=== PATIENT | female | born 1935 | race Caucasian/White ===

== ENCOUNTER 2019-12-15 17:21 | Inpatient (IN) | payer MEDICARE, OTHER ==
[2019-12-15 18:04] LABS: Hemoglobin 12.7 g/dL (12.0-16.0); Mean Corpuscular HGB CONC 34.7 g/dL (32.0-36.0); Mean Corpuscular Hemoglobin 30.8 pg (27.0-31.0); Mean Corpuscular Volume 88.9 fL (78.0-98.0); Mean Platelet Volume 9.5 fL (7.4-10.4); Platelet Count 212 thou/uL (130-400); RBC Distribution Width 11.7 % (11.5-14.5); Red Blood Cell (RBC) Count 4.11 mill/uL (4.20-5.40); White Blood Cell (WBC) Count 10.7 thou/uL (4.8-10.8)
[2019-12-15 18:17] LABS: Band 2 % (5-11); Lymphocytes 7 % (21-51); MDiff Complete? YES; Monocytes 3 % (0-10); Neutrophil 87 % (42-75); Platelet Morphology Comment Appears Adequate; RBC Morphology Normal; Reactive Lymphocytes 1 % (0-10)
[2019-12-15 18:25] LABS: ALT (SGPT) 43 U/L (8-55); AST (SGOT) 32 U/L (5-34); Albumin 3.1 g/dL (3.4-4.8); Alkaline Phosphatase 62 U/L (40-110); Anion Gap 14 mmol/L (10-20); BUN (Urea Nitrogen) 24 mg/dL (9.8-20.1); Bilirubin, Total 0.7 mg/dL (0.2-1.2); Calc. Creatinine Clearance 0 mL/min (70-130); Calcium 8.4 mg/dL (7.8-10.44); Carbon Dioxide 20 mmol/L (23-31); Chloride 107 mmol/L (98-107); Estimated GFR-MDRD 67; Globulin 2.9 g/dL (2.4-3.5); Glucose 98 mg/dL (83-110); Potassium 3.8 mmol/L (3.5-5.1); Sodium 137 mmol/L (136-145)
[2019-12-15 18:48] LABS: CKMB 0.4 ng/mL (0-6.6)
--- NOTE | 2019-12-15 18:56 | RAD ---
Chest AP view INDICATION: Dizziness, weakness and fever COMPARISON: None FINDINGS: Lungs: There is bilateral peripheral airspace disease suspicious for bilateral pneumonia. Cardiac silhouette: The cardiomediastinal silhouette appears within normal limits. Pulmonary vasculature: Normal Pleural spaces: No pleural effusion or pneumothorax is demonstrated. Upper abdomen: No abnormality seen. Osseous structures: No acute osseous abnormality. Additional findings: None. IMPRESSION: Bilateral peripheral interstitial and airspace opacities suspicious for an atypical infectious proces s. Recommend correlation with Covid testing.
[2019-12-15] MEDS ORDERED: cefTRIAXone\\ROCEPHIN 1 GM VIAL ONE (19:07)
[2019-12-15] MEDS ORDERED: Azithromycin 500 MG VIAL ONE (19:07)
[2019-12-15] MEDS ORDERED: Guaifenesin DM 100-10/5 ML UDCUP PO PRN (20:30)
[2019-12-15] MEDS ORDERED: Acetaminophen 325 MG TAB PO PRN (20:30)
[2019-12-15 20:32] LABS: SARS-CoV-2 NAA Rapid Test DETECTED (NotDetected)
--- NOTE | 2019-12-15 20:35 | PDOC.HHP ---
Hospitalist HPI - History of Present Illness Cough and shortness of breath History of Present Illness: 84-year-old man with a past medical history of hypercholesterolemia and hypothyroidism presented to the emergency department with a complaint of cough, shortness of breath and fever. Patient report cough nasal congestion and shortness of breath which have been present for about 1 and half weeks. Her PCP prescribed her steroids and antibiotics with no response. Patient report developing fever today with temperature up to 101.3. She also reports nonproductive cough. Denied any chest pain. She was complaining of dizziness and weakness. Chest x-ray in the ED demonstrated bilateral interstitial and airspace opacities consistent with atypical pneumonia suspicious for Covid. Patient has no leukocytosis, not tachycardic and does not meet criteria for sepsis. She was also saturating well on room and was not requiring oxygen. Rapid COVID-19 test is pending. Hospitalist service is called hospitalized the patient for further management. Hospitalist ROS - Review of Systems Other: Patient denied any abdominal pain or diarrhea or nausea or vomiting. She denied any dysuria or increased urinary frequency. Except as documented, all other systems reviewed and negative. - Medication Medications: Current Medications Acetaminophen (Acetaminophen 325 Mg Tab) 650 mg PO Q4H PRN PRN Reason: Headache/Fever/Mild Pain (1-3) Ascorbic Acid (Ascorbic Acid 500 Mg Chewable Tablet) 1,000 mg PO DAILY [facility] Azithromycin (Azithromycin 250 Mg Tab) 500 mg PO DAILY [facility] Stop: 12/19/19 09:01 Cholecalciferol (Cholecalciferol 1,000 Units (25 Mcg) Tab) 1,000 units PO DAILY [facility] Dexamethasone (Dexamethasone 4 Mg Tab) 6 mg PO QA-[facility] Enoxaparin Sodium (Enoxaparin Sodium 40 Mg/0.4 Ml Syringe) 40 mg SC 0900 [facility] Guaifenesin/Dextromethorphan (Guaifenesin Dm 100-10/5 Ml Udcup) 15 ml PO Q4H PRN PRN Reason: Cough Sodium Chloride (Flush - Normal Saline 10 Ml Syringe) 10 ml IVF Q12HR PRN PRN Reason: Saline Flush Zinc Sulfate (Zinc Sulfate 220 Mg Cap) 220 mg PO DAILY [facility] Hospitalist History - Past Medical History Cardiac: reports: Other (Hypercholesterolemia) Endocrine: reports: Hypothyroidism - Past Surgical History Other Surgical History: Tonsillectomy, kidney stone removal, back growth removal. - Family History Other Family History: Patient states no known medical problems in her family. Mother at the age of 94, father at a similar age. - Social History Smoking Status: Former smoker Alcohol: reports: None Drugs: reports: none - Exam General Appearance: NAD, awake alert Eye: PERRL, anicteric sclera ENT: normocephalic atraumatic, no oropharyngeal lesions, moist mucosa Neck: supple, symmetric, no JVD Heart: RRR, no murmur, no gallops, no rubs Respiratory: no wheezes, no ronchi Respiratory - other findings: Mild bibasilar Rales. Gastrointestinal: soft, non-tender, non-distended, normal bowel sounds Extremities: no cyanosis, no edema Skin: normal turgor, no rashes Neurological: cranial nerve grossly intact, no weakness, no focal deficits Musculoskeletal: normal tone, normal strength Psychiatric: normal affect, normal behavior, A&O x 3 Hospitalist Results - Labs Result Diagrams: 12/15/19 17:50 12/15/19 17:50 Lab results: WBC 10.7 thou/uL (4.8-10.8) 12/15/19 17:50 Hgb 12.7 g/dL (12.0-16.0) 12/15/19 17:50 Hct 36.5 % (36.0-47.0) 12/15/19 17:50 MCV 88.9 fL (78.0-98.0) 12/15/19 17:50 Plt Count 212 thou/uL (130-400) 12/15/19 17:50 Band Neuts % (Manual) 2 % (5-11) L 12/15/19 17:50 Sodium 137 mmol/L (136-145) 12/15/19 17:50 Potassium 3.8 mmol/L (3.5-5.1) 12/15/19 17:50 Chloride 107 mmol/L (98-107) 12/15/19 17:50 Carbon Dioxide 20 mmol/L (23-31) L 12/15/19 17:50 BUN 24 mg/dL (9.8-20.1) H 12/15/19 17:50 Creatinine 0.82 mg/dL (0.6-1.1) 12/15/19 17:50 Glucose 98 mg/dL (83-110) 12/15/19 17:50 Lactic Acid 0.8 mmol/L (0.5-2.2) 12/15/19 18:25 Calcium 8.4 mg/dL (7.8-10.44) 12/15/19 17:50 Total Bilirubin 0.7 mg/dL (0.2-1.2) 12/15/19 17:50 AST 32 U/L (5-34) 12/15/19 17:50 ALT 43 U/L (8-55) 12/15/19 17:50 Alkaline Phosphatase 62 U/L (40-110) 12/15/19 17:50 CK-MB (CK-2) 0.4 ng/mL (0-6.6) 12/15/19 17:50 Troponin I 0.078 ng/mL (< 0.028) H 12/15/19 17:50 Serum Total Protein 6.0 g/dL (6.0-8.3) 12/15/19 17:50 Albumin 3.1 g/dL (3.4-4.8) L 12/15/19 17:50 - Radiology Interpretation Chest x-ray Status: report reviewed by me (Bilateral lower lobe infiltrates.) Hospitalist H&P A/P - Problem (1) Pneumonia due to COVID-19 virus Code(s): U07.1 - COVID-19; J12.89 - OTHER VIRAL PNEUMONIA Status: Acute (2) Hypothyroidism Code(s): E03.9 - HYPOTHYROIDISM, UNSPECIFIED Status: Acute (3) Hypercholesterolemia Code(s): E78.00 - PURE HYPERCHOLESTEROLEMIA, UNSPECIFIED Status: Acute (4) Elevated troponin Code(s): R77.8 - OTHER SPECIFIED ABNORMALITIES OF PLASMA PROTEINS Status: Acute Assessment and Plan: Etiology of elevated troponin is unclear. Patient denies any chest pain. She has no history of coronary artery disease. - Plan Plan: Place patient under observation. Start Zithromax. Start oral dexamethasone for Covid pneumonia. Vitamin supplementation. Supplemental oxygen as needed. Obtain an echocardiogram given elevated troponin. Check ferritin, procalcitonin d-dimer and CRP.
[2019-12-15 20:58] LABS: Bilirubin Negative (Negative); Blood, Urine Negative (Negative); Clarity Clear (Clear); Glucose, Urine (Dipstick) Normal (Negative); Ketone, Urine Negative (Negative); Leukocyte Negative Leu/uL (Negative); Nitrite Negative (Negative); Protein, Urine (Dipstick) Negative (Neg-Trace); Urobilinogen Normal mg/dL (Less than 2); pH, Urine 6.5 (5.0-9.0)
[2019-12-15 21:42] LABS: Troponin I 0.099 ng/mL (< 0.028)
--- NOTE | 2019-12-15 21:47 | PDOC.FMACP ---
Advance Care Planning - Problem (1) Pneumonia Status: Acute Code(s): J18.9 - PNEUMONIA, UNSPECIFIED ORGANISM (2) Hypothyroidism Status: Acute Code(s): E03.9 - HYPOTHYROIDISM, UNSPECIFIED (3) Hypercholesterolemia Status: Acute Code(s): E78.00 - PURE HYPERCHOLESTEROLEMIA, UNSPECIFIED (4) Elevated troponin Status: Acute Code(s): R77.8 - OTHER SPECIFIED ABNORMALITIES OF PLASMA PROTEINS - Note Summary: Advanced Care Planning was discussed. The diagnosis, prognosis and goals of care were discussed. Appropriate forms and documentation to accomplish the goals of care were discussed. All questions were answered. Patient wishes to be full code. She has no living well. Her daughter Isabell is her medical decision maker. I discussed the need to document advance directive and MPOA. Time Spent (mins): 18
[2019-12-16 00:23] LABS: Troponin I 0.095 ng/mL (< 0.028)
[2019-12-16 01:34] VITALS: BMI 24.6
[2019-12-16 05:32] LABS: Anion Gap 14 mmol/L (10-20); BUN (Urea Nitrogen) 21 mg/dL (9.8-20.1); Calc. Creatinine Clearance 63 mL/min (70-130); Carbon Dioxide 19 mmol/L (23-31); Chloride 110 mmol/L (98-107); Estimated GFR-MDRD 77; Glucose 80 mg/dL (83-110); Potassium 3.7 mmol/L (3.5-5.1); Sodium 139 mmol/L (136-145)
[2019-12-16 05:45] LABS: Band 8 % (5-11); Hemoglobin 12.3 g/dL (12.0-16.0); Lymphocytes 7 % (21-51); MDiff Complete? YES; Mean Corpuscular HGB CONC 33.1 g/dL (32.0-36.0); Mean Corpuscular Hemoglobin 29.8 pg (27.0-31.0); Mean Corpuscular Volume 90.2 fL (78.0-98.0); Mean Platelet Volume 9.5 fL (7.4-10.4); Monocytes 3 % (0-10); Neutrophil 82 % (42-75); Platelet Count 220 thou/uL (130-400); Platelet Morphology Comment Appears Adequate; Red Blood Cell (RBC) Count 4.13 mill/uL (4.20-5.40); White Blood Cell (WBC) Count 10.6 thou/uL (4.8-10.8)
[2019-12-16] MEDS ORDERED: Azithromycin 250 MG TAB PO SCH (09:00)
[2019-12-16] MEDS: Ascorbic Acid 500 mg Chewable Tablet PO SCH (10:03)
[2019-12-16] MEDS: Dexamethasone 4 MG TAB PO SCH (10:04)
[2019-12-16] MEDS: Enoxaparin Sodium 40 MG/0.4 ML SYRINGE SC SCH (10:05)
[2019-12-16] MEDS: Cholecalciferol 1,000 UNITS (25 MCG) TAB PO SCH (10:05)
[2019-12-16] MEDS: Zinc Sulfate 220 MG CAP PO SCH (10:05)
--- NOTE | 2019-12-16 13:03 | PDOC.HOSPP ---
- Subjective Encounter Date: 12/16/19 Encounter Time: 10:15 Subjective: no sob, feels better ambulates by herself - Objective Vital Signs & Weight: Vital Signs (12 hours) Temp Pulse Resp BP Pulse Ox 12/16/19 10:23 98.8 F 91 16 124/75 97 12/16/19 04:00 98.3 F 80 18 131/70 99 Weight Admit Weight 148 lb 3.2 oz Weight 148 lb 3.2 oz I&O: 12/15/19 12/16/19 12/17/19 06:59 06:59 06:59 Intake Total 120 Output Total 180 Balance -60 Result Diagrams: 12/16/19 04:48 12/16/19 04:48 Hospitalist ROS - Medication Medications: Active Medications Generic Name Dose Route Start Last Admin Trade Name Freq PRN Reason Stop Dose Admin Ascorbic Acid 1,000 mg 12/16/19 09:00 12/16/19 10:03 Ascorbic Acid 500 Mg Chewable Tablet PO 1,000 mg DAILY [facility] Administration Azithromycin 500 mg 12/16/19 09:00 12/16/19 10:04 Azithromycin 250 Mg Tab PO 12/19/19 09:01 500 mg DAILY [facility] Administration Cholecalciferol 1,000 units 12/16/19 09:00 12/16/19 10:05 Cholecalciferol 1,000 Units (25 Mcg) Tab PO 1,000 units DAILY [facility] Administration Dexamethasone 6 mg 12/16/19 08:00 12/16/19 10:04 Dexamethasone 4 Mg Tab PO 6 mg QAM-WM [facility] Administration Enoxaparin Sodium 40 mg 12/16/19 09:00 12/16/19 10:05 Enoxaparin Sodium 40 Mg/0.4 Ml Syringe SC 40 mg 0900 [facility] Administration Zinc Sulfate 220 mg 12/16/19 09:00 12/16/19 10:05 Zinc Sulfate 220 Mg Cap PO 220 mg DAILY [facility] Administration - Exam General Appearance: awake alert Eye: PERRL, anicteric sclera ENT: no oropharyngeal lesions, moist mucosa Neck: supple, no JVD Heart: RRR, no murmur Respiratory: no wheezes, no rales Gastrointestinal: soft, non-tender, non-distended, normal bowel sounds Extremities: no cyanosis, no edema Neurological: cranial nerve grossly intact, no focal deficits Hosp A/P (1) Pneumonia due to COVID-19 virus Code(s): U07.1 - COVID-19; J12.89 - OTHER VIRAL PNEUMONIA Status: Acute (2) Hypercholesterolemia Code(s): E78.00 - PURE HYPERCHOLESTEROLEMIA, UNSPECIFIED Status: Chronic (3) Hypothyroidism Code(s): E03.9 - HYPOTHYROIDISM, UNSPECIFIED Status: Chronic Qualifiers: Hypothyroidism type: unspecified Qualified Code(s): E03.9 - Hypothyroidism, unspecified - Plan is on dexamethasone, nebs prn hemostable not on oxygen likely onset is 1 and 1/2 weeks back? may dc home if ok with
[2019-12-16] MEDS ORDERED: FLU VACC QS2020-21(65YR UP)/PF 240 MCG/0.7 ML SYRINGE IM ONE (21:00)
[2019-12-17] MEDS: Enoxaparin Sodium 40 MG/0.4 ML SYRINGE SC SCH (08:53)
[2019-12-17] MEDS: Ascorbic Acid 500 mg Chewable Tablet PO SCH (08:54)
[2019-12-17] MEDS: Dexamethasone 4 MG TAB PO SCH (08:54)
[2019-12-17] MEDS: Cholecalciferol 1,000 UNITS (25 MCG) TAB PO SCH (08:54)
[2019-12-17] MEDS: Zinc Sulfate 220 MG CAP PO SCH (08:54)
--- NOTE | 2019-12-17 13:46 | PDOC.HOSPP ---
- Subjective Encounter Date: 12/17/19 Encounter Time: 10:00 Subjective: is sitting in chair, feels better has cough+ - Objective Vital Signs & Weight: Vital Signs (12 hours) Temp Pulse Resp BP Pulse Ox 12/17/19 11:15 97.6 F 76 14 112/56 L 92 L 12/17/19 08:00 99.0 F 59 L 16 129/58 L 92 L 12/17/19 03:15 97.9 F 63 16 109/59 L 97 Weight Admit Weight 148 lb 3.2 oz Weight 148 lb 3.2 oz I&O: 12/16/19 12/17/19 12/18/19 06:59 06:59 06:59 Intake Total 120 1020 Output Total 180 400 Balance -60 620 Result Diagrams: 12/16/19 04:48 12/16/19 04:48 Hospitalist ROS - Medication Medications: Active Medications Generic Name Dose Route Start Last Admin Trade Name Freq PRN Reason Stop Dose Admin Ascorbic Acid 1,000 mg 12/16/19 09:00 12/17/19 08:54 Ascorbic Acid 500 Mg Chewable Tablet PO 1,000 mg DAILY [facility] Administration Cholecalciferol 1,000 units 12/16/19 09:00 12/17/19 08:54 Cholecalciferol 1,000 Units (25 Mcg) Tab PO 1,000 units DAILY [facility] Administration Dexamethasone 6 mg 12/16/19 08:00 12/17/19 08:54 Dexamethasone 4 Mg Tab PO 6 mg QAM-WM [facility] Administration Enoxaparin Sodium 40 mg 12/16/19 09:00 12/17/19 08:53 Enoxaparin Sodium 40 Mg/0.4 Ml Syringe SC 40 mg 0900 [facility] Administration Zinc Sulfate 220 mg 12/16/19 09:00 12/17/19 08:54 Zinc Sulfate 220 Mg Cap PO 220 mg DAILY [facility] Administration - Exam General Appearance: awake alert Eye: PERRL, anicteric sclera ENT: no oropharyngeal lesions, moist mucosa Neck: supple, no JVD Heart: RRR, no murmur Respiratory: no wheezes, no rales, rhonchi Gastrointestinal: soft, non-tender, non-distended, normal bowel sounds Extremities: no cyanosis, no edema Neurological: cranial nerve grossly intact, no focal deficits Psychiatric: normal affect, A&O x 3 Hosp A/P (1) Pneumonia due to COVID-19 virus Code(s): U07.1 - COVID-19; J12.89 - OTHER VIRAL PNEUMONIA Status: Acute (2) Hypercholesterolemia Code(s): E78.00 - PURE HYPERCHOLESTEROLEMIA, UNSPECIFIED Status: Chronic (3) Hypothyroidism Code(s): E03.9 - HYPOTHYROIDISM, UNSPECIFIED Status: Chronic Qualifiers: Hypothyroidism type: unspecified Qualified Code(s): E03.9 - Hypothyroidism, unspecified - Plan is on dexamethasone, nebs prn, remdesivir to start from today, convalescent plasma hemostable not on oxygen likely onset is 1 and 1/2 weeks back? dc plan after 4 doses of remdesivir to ambulate as tolerated in room
--- NOTE | 2019-12-17 14:01 | CON ---
DATE OF CONSULTATION: 12/17/2019 REASON FOR CONSULTATION: COVID infection. HISTORY OF PRESENT ILLNESS: An 84-year-old, history of dyslipidemia with an 8- day history of respiratory infection and fever with a positive COVID test. Had taken corticosteroids and an unknown oral antimicrobial before admission without improvement. On arrival, temperature 101.3, BP 116/60, O2 saturation 98 on room air. Diminished breath sounds at the bases, otherwise exam was not particularly remarkable. White cell count 10.7, hemoglobin 12.7, platelets 212, and 87% neutrophils. Creatinine 0.72. Ferritin 398. CRP 8.23. SARS-CoV was detected. Chest x-ray, bilateral infiltrates noted. Currently, she is starting to desaturate a bit, she started at 99 and is down to 92 to 93 on room air. A little bit tachypneic, she appears otherwise comfortable. She is sitting up, to try to feel more comfortable without oxygen supplementation. MEDICAL HISTORY: Includes dyslipidemia, had some kidney surgery tonsillectomy, hysterectomy. SOCIAL HISTORY: [place]. Former smoker. ALLERGIES: NONE. FAMILY HISTORY: Noncontributory. Not clear who gave her the virus. She does not go around anybody. Likely, she was in touch with her daughter, who is 60 years old and is asymptomatic. PHYSICAL EXAMINATION: VITAL SIGNS: T-max 99, BP 112/56, heart rate 76, respiratory rate 14, O2 saturation 92 to 97. SKIN: With no areas of breakdown. Peripheral IV access. She is urinating in the toilet. HEENT: Ocular movements conjugate. Oral cavity is somewhat dry. NECK: Supple. No jugular venous distention. LUNGS: With scattered inspiratory crackles, right and left hemithorax. HEART: S1 and S2, regular rate without murmurs. No S3 or S4. ABDOMEN: Soft. Not distended or tender. No ascites. No bladder distention. EXTREMITIES: No edema. Pulses 1+ in dorsalis pedis. Plantar responses are flexor. Moves extremities equally. NEUROLOGIC: Cognitive function appears to be intact. LABORATORY DATA: Followup labs are white cell count 10.6 with 82% neutrophils, and lymphocytopenia, about 700 lymphocytes. ASSESSMENT: Dyslipidemia with mod to severe COVID pneumonia, starting to desaturate now and has bilateral infiltrates, so she is at high risk of progression going into her second week, she is at 8 days now. Go ahead and start remdesivir and give her convalescent plasma, even though the efficacy is modest for those two interventions, particularly remdesivir, but still those are the only two things that we have available in our armamentarium. Waiting for the monoclonal antibodies to become available. Continued Decadron and daily inflammatory markers. She probably will need oxygen supplementation to be started and I would advise at least a nasal cannulae O2 at 1 or 2 L. Job ID: [id number] [facility]
[2019-12-17 14:41] LABS: ALT (SGPT) 103 U/L (8-55); AST (SGOT) 105 U/L (5-34); Albumin 3.7 g/dL (3.4-4.8); Alkaline Phosphatase 85 U/L (40-110); Anion Gap 15 mmol/L (10-20); BUN (Urea Nitrogen) 38 mg/dL (9.8-20.1); Bilirubin, Direct 0.2 mg/dL (0.1-0.3); Bilirubin, Total 0.5 mg/dL (0.2-1.2); CRP (Inflammatory) 8.72 mg/dL (= or < 0.5); Calc. Creatinine Clearance 44 mL/min (70-130); Carbon Dioxide 19 mmol/L (23-31); Chloride 108 mmol/L (98-107); Estimated GFR-MDRD 52; Glucose 213 mg/dL (83-110); Potassium 3.6 mmol/L (3.5-5.1); Protein, Total 6.8 g/dL (6.0-8.3); Sodium 138 mmol/L (136-145)
[2019-12-17] MEDS ORDERED: REMDESIVIR (EUA) 200 MG in Sodium Chloride 0.9% 250 ML 210 ML IV SCH (18:00)
[2019-12-18 05:43] LABS: ALT (SGPT) 107 U/L (8-55); AST (SGOT) 95 U/L (5-34); Albumin 3.2 g/dL (3.4-4.8); Alkaline Phosphatase 71 U/L (40-110); Anion Gap 14 mmol/L (10-20); BUN (Urea Nitrogen) 33 mg/dL (9.8-20.1); Bilirubin, Direct 0.2 mg/dL (0.1-0.3); Bilirubin, Total 0.3 mg/dL (0.2-1.2); CRP (Inflammatory) 4.43 mg/dL (= or < 0.5); Calc. Creatinine Clearance 60 mL/min (70-130); Calcium 8.2 mg/dL (7.8-10.44); Carbon Dioxide 20 mmol/L (23-31); Chloride 110 mmol/L (98-107); Estimated GFR-MDRD 73; Glucose 129 mg/dL (83-110); Potassium 3.7 mmol/L (3.5-5.1); Protein, Total 5.7 g/dL (6.0-8.3); Sodium 140 mmol/L (136-145)
[2019-12-18] MEDS: Dexamethasone 4 MG TAB PO SCH (08:34)
[2019-12-18] MEDS: Enoxaparin Sodium 40 MG/0.4 ML SYRINGE SC SCH (08:34)
[2019-12-18] MEDS: Ascorbic Acid 500 mg Chewable Tablet PO SCH (08:35)
[2019-12-18] MEDS: Azithromycin 250 MG TAB PO SCH (08:36)
[2019-12-18] MEDS: Zinc Sulfate 220 MG CAP PO SCH (08:36)
[2019-12-18] MEDS: Cholecalciferol 1,000 UNITS (25 MCG) TAB PO SCH (08:36)
--- NOTE | 2019-12-18 14:01 | PDOC.HOSPP ---
- Subjective Encounter Date: 12/18/19 Encounter Time: 11:00 Subjective: breathing better, is sitting in chair eating well and ambulating in room - Objective Vital Signs & Weight: Vital Signs (12 hours) Temp Pulse Resp BP Pulse Ox 12/18/19 12:30 97.2 F L 89 18 116/67 93 L 12/18/19 09:33 97.2 F L 77 16 126/64 92 L 12/18/19 09:30 92 L 12/18/19 04:27 98.2 F 78 17 140/80 100 Weight Admit Weight 148 lb 3.2 oz Weight 148 lb 3.2 oz I&O: 12/17/19 12/18/19 12/19/19 06:59 06:59 06:59 Intake Total 1020 1340 Output Total 400 600 Balance 620 740 Result Diagrams: 12/16/19 04:48 12/18/19 04:31 Hospitalist ROS - Medication Medications: Active Medications Generic Name Dose Route Start Last Admin Trade Name Freq PRN Reason Stop Dose Admin Ascorbic Acid 1,000 mg 12/16/19 09:00 12/18/19 08:35 Ascorbic Acid 500 Mg Chewable Tablet PO 1,000 mg DAILY [facility] Administration Azithromycin 500 mg 12/18/19 09:00 12/18/19 08:36 Azithromycin 250 Mg Tab PO 12/19/19 09:01 500 mg DAILY [facility] Administration Cholecalciferol 1,000 units 12/16/19 09:00 12/18/19 08:36 Cholecalciferol 1,000 Units (25 Mcg) Tab PO 1,000 units DAILY [facility] Administration Dexamethasone 6 mg 12/16/19 08:00 12/18/19 08:34 Dexamethasone 4 Mg Tab PO 6 mg QAM-WM [facility] Administration Enoxaparin Sodium 40 mg 12/16/19 09:00 12/18/19 08:34 Enoxaparin Sodium 40 Mg/0.4 Ml Syringe SC 40 mg 0900 [facility] Administration Sodium Chloride 10 ml 12/15/19 20:30 12/18/19 08:37 Flush - Normal Saline 10 Ml Syringe IVF 10 ml Q12HR PRN Administration Saline Flush Zinc Sulfate 220 mg 12/16/19 09:00 12/18/19 08:36 Zinc Sulfate 220 Mg Cap PO 220 mg DAILY [facility] Administration - Exam General Appearance: awake alert Eye: PERRL, anicteric sclera ENT: no oropharyngeal lesions, moist mucosa Neck: supple, no JVD Heart: RRR, no murmur Respiratory: no wheezes, no rales, rhonchi Gastrointestinal: soft, non-tender, non-distended, normal bowel sounds Extremities: no cyanosis, no edema Neurological: cranial nerve grossly intact, no focal deficits Psychiatric: normal affect, A&O x 3 Hosp A/P (1) Pneumonia due to COVID-19 virus Code(s): U07.1 - COVID-19; J12.89 - OTHER VIRAL PNEUMONIA Status: Acute (2) Hypercholesterolemia Code(s): E78.00 - PURE HYPERCHOLESTEROLEMIA, UNSPECIFIED Status: Chronic (3) Hypothyroidism Code(s): E03.9 - HYPOTHYROIDISM, UNSPECIFIED Status: Chronic Qualifiers: Hypothyroidism type: unspecified Qualified Code(s): E03.9 - Hypothyroidism, unspecified - Plan is on dexamethasone, nebs prn, remdesivir, got convalescent plasma 12/17/19 hemostable not on oxygen likely onset is 1 and 1/2 weeks back? dc plan after 4 doses of remdesivir to ambulate as tolerated in room
[2019-12-18] MEDS: REMDESIVIR (EUA) 100 MG in Sodium Chloride 0.9% 250 ML 230 ML IV SCH (20:20)
[2019-12-19 05:57] LABS: ALT (SGPT) 99 U/L (8-55); AST (SGOT) 46 U/L (5-34); Albumin 3.4 g/dL (3.4-4.8); Alkaline Phosphatase 69 U/L (40-110); Anion Gap 13 mmol/L (10-20); BUN (Urea Nitrogen) 33 mg/dL (9.8-20.1); Bilirubin, Direct 0.1 mg/dL (0.1-0.3); Bilirubin, Total 0.3 mg/dL (0.2-1.2); CRP (Inflammatory) 2.37 mg/dL (= or < 0.5); Calc. Creatinine Clearance 58 mL/min (70-130); Calcium 8.3 mg/dL (7.8-10.44); Carbon Dioxide 21 mmol/L (23-31); Chloride 110 mmol/L (98-107); Estimated GFR-MDRD 71; Glucose 107 mg/dL (83-110); Potassium 3.9 mmol/L (3.5-5.1); Protein, Total 5.9 g/dL (6.0-8.3); Sodium 140 mmol/L (136-145)
[2019-12-19] MEDS: Enoxaparin Sodium 40 MG/0.4 ML SYRINGE SC SCH (08:44)
[2019-12-19] MEDS: Ascorbic Acid 500 mg Chewable Tablet PO SCH (08:45)
[2019-12-19] MEDS: Dexamethasone 4 MG TAB PO SCH (08:45)
[2019-12-19] MEDS: Zinc Sulfate 220 MG CAP PO SCH (08:45)
[2019-12-19] MEDS: Cholecalciferol 1,000 UNITS (25 MCG) TAB PO SCH (08:45)
[2019-12-19] MEDS: Azithromycin 250 MG TAB PO SCH (08:45)
--- NOTE | 2019-12-19 12:27 | PDOC.HOSPP ---
- Subjective Encounter Date: 12/19/19 Encounter Time: 09:00 Subjective: no sob, is sitting in chair feels better is eating and ambulating well - Objective Vital Signs & Weight: Vital Signs (12 hours) Temp Pulse Resp BP BP Pulse Ox 12/19/19 12:00 79 18 125/72 95 12/19/19 09:05 94 L 12/19/19 09:00 97.4 F L 70 18 132/65 94 L 12/19/19 04:25 98.9 F 68 18 132/73 95 Weight Admit Weight 148 lb 3.2 oz Weight 148 lb 3.2 oz I&O: 12/18/19 12/19/19 12/20/19 06:59 06:59 06:59 Intake Total 1340 1100 720 Output Total 600 Balance 740 1100 720 Result Diagrams: 12/16/19 04:48 12/19/19 04:53 Hospitalist ROS - Medication Medications: Active Medications Generic Name Dose Route Start Last Admin Trade Name Freq PRN Reason Stop Dose Admin Ascorbic Acid 1,000 mg 12/16/19 09:00 12/19/19 08:45 Ascorbic Acid 500 Mg Chewable Tablet PO 1,000 mg DAILY [facility] Administration Cholecalciferol 1,000 units 12/16/19 09:00 12/19/19 08:45 Cholecalciferol 1,000 Units (25 Mcg) Tab PO 1,000 units DAILY [facility] Administration Dexamethasone 6 mg 12/16/19 08:00 12/19/19 08:45 Dexamethasone 4 Mg Tab PO 6 mg QAM-WM [facility] Administration Enoxaparin Sodium 40 mg 12/16/19 09:00 12/19/19 08:44 Enoxaparin Sodium 40 Mg/0.4 Ml Syringe SC 40 mg 0900 [facility] Administration Remdesivir 100 mg/ Sodium 230 mls @ 230 mls/hr 12/18/19 18:00 12/18/19 20:20 Chloride IV 12/21/19 18:59 230 mls Q24HR@1800 [facility] Administration Sodium Chloride 10 ml 12/15/19 20:30 12/19/19 08:45 Flush - Normal Saline 10 Ml Syringe IVF 10 ml Q12HR PRN Administration Saline Flush Zinc Sulfate 220 mg 12/16/19 09:00 12/19/19 08:45 Zinc Sulfate 220 Mg Cap PO 220 mg DAILY [facility] Administration - Exam General Appearance: awake alert Eye: PERRL, anicteric sclera ENT: no oropharyngeal lesions, moist mucosa Neck: supple, no JVD Heart: RRR, no murmur Respiratory: no wheezes, no rales Gastrointestinal: soft, non-tender, non-distended, normal bowel sounds Extremities: no cyanosis, no edema Neurological: cranial nerve grossly intact, no focal deficits Psychiatric: normal affect, A&O x 3 Hosp A/P (1) Pneumonia due to COVID-19 virus Code(s): U07.1 - COVID-19; J12.89 - OTHER VIRAL PNEUMONIA Status: Acute (2) Hypercholesterolemia Code(s): E78.00 - PURE HYPERCHOLESTEROLEMIA, UNSPECIFIED Status: Chronic (3) Hypothyroidism Code(s): E03.9 - HYPOTHYROIDISM, UNSPECIFIED Status: Chronic Qualifiers: Hypothyroidism type: unspecified Qualified Code(s): E03.9 - Hypothyroidism, unspecified - Plan is on dexamethasone, nebs prn, remdesivir, got convalescent plasma 12/17/19 hemostable not on oxygen likely onset is 1 and 1/2 weeks back? dc plan after 4 doses of remdesivir in am to ambulate as tolerated in room
[2019-12-19] MEDS ORDERED: Bisacodyl 10 MG SUPP PR PRN (13:59)
[2019-12-19] MEDS: REMDESIVIR (EUA) 100 MG in Sodium Chloride 0.9% 250 ML 230 ML IV SCH (18:24)
[2019-12-19] MEDS: Docusate 100 MG CAP PO SCH (19:52)
[2019-12-20 05:38] LABS: ALT (SGPT) 68 U/L (8-55); AST (SGOT) 21 U/L (5-34); Albumin 3.1 g/dL (3.4-4.8); Alkaline Phosphatase 61 U/L (40-110); Anion Gap 13 mmol/L (10-20); BUN (Urea Nitrogen) 29 mg/dL (9.8-20.1); Bilirubin, Direct 0.2 mg/dL (0.1-0.3); Bilirubin, Total 0.4 mg/dL (0.2-1.2); CRP (Inflammatory) 1.33 mg/dL (= or < 0.5); Calc. Creatinine Clearance 63 mL/min (70-130); Calcium 8.3 mg/dL (7.8-10.44); Carbon Dioxide 20 mmol/L (23-31); Chloride 110 mmol/L (98-107); Estimated GFR-MDRD 77; Glucose 116 mg/dL (83-110); Potassium 3.9 mmol/L (3.5-5.1); Protein, Total 5.5 g/dL (6.0-8.3); Sodium 139 mmol/L (136-145)
[2019-12-20] MEDS: Enoxaparin Sodium 40 MG/0.4 ML SYRINGE SC SCH (08:33)
[2019-12-20] MEDS: Polyethylene Glycol 3350 17 GM Packet PO SCH (08:34)
[2019-12-20] MEDS: Docusate 100 MG CAP PO SCH ×2 (08:34→20:20)
[2019-12-20] MEDS: Dexamethasone 4 MG TAB PO SCH (08:34)
[2019-12-20] MEDS: Zinc Sulfate 220 MG CAP PO SCH (08:34)
[2019-12-20] MEDS: Ascorbic Acid 500 mg Chewable Tablet PO SCH (08:34)
[2019-12-20] MEDS: Cholecalciferol 1,000 UNITS (25 MCG) TAB PO SCH (08:36)
--- NOTE | 2019-12-20 12:16 | PDOC.HOSPP ---
- Subjective Encounter Date: 12/20/19 Encounter Time: 10:30 Subjective: no sob, feels better is ambulating in room not on oxygen - Objective Vital Signs & Weight: Vital Signs (12 hours) Temp Pulse Resp BP BP Pulse Ox 12/20/19 11:32 75 20 117/70 12/20/19 07:45 98.6 F 69 20 114/65 94 L 12/20/19 04:00 97.8 F 62 16 129/68 95 Weight Admit Weight 148 lb 3.2 oz Weight 148 lb 3.2 oz I&O: 12/19/19 12/20/19 12/21/19 06:59 06:59 06:59 Intake Total 1100 1320 Balance 1100 1320 Result Diagrams: 12/16/19 04:48 12/20/19 04:41 Hospitalist ROS - Medication Medications: Active Medications Generic Name Dose Route Start Last Admin Trade Name Freq PRN Reason Stop Dose Admin Ascorbic Acid 1,000 mg 12/16/19 09:00 12/20/19 08:34 Ascorbic Acid 500 Mg Chewable Tablet PO 1,000 mg DAILY [facility] Administration Cholecalciferol 1,000 units 12/16/19 09:00 12/20/19 08:36 Cholecalciferol 1,000 Units (25 Mcg) Tab PO 1,000 units DAILY [facility] Administration Dexamethasone 6 mg 12/16/19 08:00 12/20/19 08:34 Dexamethasone 4 Mg Tab PO 6 mg QAM-WM [facility] Administration Docusate Sodium 100 mg 12/19/19 21:00 12/20/19 08:34 Docusate 100 Mg Cap PO 100 mg BID [facility] Administration Enoxaparin Sodium 40 mg 12/16/19 09:00 12/20/19 08:33 Enoxaparin Sodium 40 Mg/0.4 Ml Syringe SC 40 mg 0900 [facility] Administration Remdesivir 100 mg/ Sodium 230 mls @ 230 mls/hr 12/18/19 18:00 12/19/19 18:24 Chloride IV 12/21/19 18:59 230 mls Q24HR@1800 [facility] Administration Polyethylene Glycol 17 gm 12/20/19 09:00 12/20/19 08:34 Polyethylene Glycol 3350 17 Gm Packet PO 17 gm DAILY [facility] Administration Sodium Chloride 10 ml 12/15/19 20:30 12/19/19 08:45 Flush - Normal Saline 10 Ml Syringe IVF 10 ml Q12HR PRN Administration Saline Flush Zinc Sulfate 220 mg 12/16/19 09:00 12/20/19 08:34 Zinc Sulfate 220 Mg Cap PO 220 mg DAILY [facility] Administration - Exam General Appearance: awake alert Eye: PERRL, anicteric sclera ENT: no oropharyngeal lesions, moist mucosa Neck: supple, no JVD Heart: RRR, no murmur Respiratory: no wheezes, no rales Gastrointestinal: soft, non-tender, non-distended, normal bowel sounds Extremities: no cyanosis, no edema Neurological: cranial nerve grossly intact, no focal deficits Psychiatric: normal affect, A&O x 3 Hosp A/P (1) Pneumonia due to COVID-19 virus Code(s): U07.1 - COVID-19; J12.89 - OTHER VIRAL PNEUMONIA Status: Acute (2) Hypercholesterolemia Code(s): E78.00 - PURE HYPERCHOLESTEROLEMIA, UNSPECIFIED Status: Chronic (3) Hypothyroidism Code(s): E03.9 - HYPOTHYROIDISM, UNSPECIFIED Status: Chronic Qualifiers: Hypothyroidism type: unspecified Qualified Code(s): E03.9 - Hypothyroidism, unspecified - Plan is on dexamethasone, nebs prn, remdesivir, got convalescent plasma 12/17/19 hemostable not on oxygen likely onset is 1 and 1/2 weeks back? dc plan after 4 doses of remdesivir, is getting her 3rd dose today to ambulate as tolerated in room
[2019-12-20] MEDS: REMDESIVIR (EUA) 100 MG in Sodium Chloride 0.9% 250 ML 230 ML IV SCH (17:54)
[2019-12-21 05:52] LABS: ALT (SGPT) 52 U/L (8-55); AST (SGOT) 17 U/L (5-34); Alkaline Phosphatase 57 U/L (40-110); Anion Gap 11 mmol/L (10-20); BUN (Urea Nitrogen) 29 mg/dL (9.8-20.1); Bilirubin, Direct 0.2 mg/dL (0.1-0.3); Bilirubin, Total 0.3 mg/dL (0.2-1.2); CRP (Inflammatory) 0.87 mg/dL (= or < 0.5); Calc. Creatinine Clearance 58 mL/min (70-130); Carbon Dioxide 23 mmol/L (23-31); Chloride 109 mmol/L (98-107); Estimated GFR-MDRD 71; Glucose 101 mg/dL (83-110); Protein, Total 5.3 g/dL (6.0-8.3); Sodium 139 mmol/L (136-145)
[2019-12-21] MEDS: Docusate 100 MG CAP PO SCH (08:42)
[2019-12-21] MEDS: Ascorbic Acid 500 mg Chewable Tablet PO SCH (08:42)
[2019-12-21] MEDS: Dexamethasone 4 MG TAB PO SCH (08:42)
[2019-12-21] MEDS: Zinc Sulfate 220 MG CAP PO SCH (08:42)
[2019-12-21] MEDS: Cholecalciferol 1,000 UNITS (25 MCG) TAB PO SCH (08:42)
[2019-12-21] MEDS: Polyethylene Glycol 3350 17 GM Packet PO SCH (08:43)
[2019-12-21] MEDS: Enoxaparin Sodium 40 MG/0.4 ML SYRINGE SC SCH (08:43)
--- NOTE | 2019-12-21 10:56 | RAD ---
XR Chest 1 View Portable History: COVID pneumonia Comparison: Radiograph December 15, 2019 Findings: Slightly worsened peripheral airspace opacities. No pneumothorax. No effusion. No acute oss eous abnormality. Cardiac silhouette and mediastinal contours are within normal limits. Impression: Slightly worsened peripheral airspace consolidation.
--- NOTE | 2019-12-21 11:15 | PDOC.HOSPP ---
- Subjective Encounter Date: 12/21/19 Encounter Time: 10:45 Subjective: breathing better no new complaints - Objective Vital Signs & Weight: Vital Signs (12 hours) Temp Pulse Resp BP BP Pulse Ox 12/21/19 08:35 97.9 F 72 18 122/72 95 12/21/19 06:00 97.8 F 65 20 134/69 96 12/21/19 04:00 96 12/21/19 00:05 55 L 18 Weight Admit Weight 148 lb 3.2 oz Weight 148 lb 3.2 oz I&O: 12/20/19 12/21/19 12/22/19 06:59 06:59 06:59 Intake Total 1320 1530 Output Total 1750 Balance 1320 -220 Result Diagrams: 12/16/19 04:48 12/21/19 04:40 Hospitalist ROS - Medication Medications: Active Medications Generic Name Dose Route Start Last Admin Trade Name Freq PRN Reason Stop Dose Admin Ascorbic Acid 1,000 mg 12/16/19 09:00 12/21/19 08:42 Ascorbic Acid 500 Mg Chewable Tablet PO 1,000 mg DAILY BERNARDO Administration Cholecalciferol 1,000 units 12/16/19 09:00 12/21/19 08:42 Cholecalciferol 1,000 Units (25 Mcg) Tab PO 1,000 units DAILY BERNARDO Administration Dexamethasone 6 mg 12/16/19 08:00 12/21/19 08:42 Dexamethasone 4 Mg Tab PO 6 mg QAM-WM BERNARDO Administration Docusate Sodium 100 mg 12/19/19 21:00 12/21/19 08:42 Docusate 100 Mg Cap PO 100 mg BID BERNARDO Administration Enoxaparin Sodium 40 mg 12/16/19 09:00 12/21/19 08:43 Enoxaparin Sodium 40 Mg/0.4 Ml Syringe SC 40 mg 0900 BERNARDO Administration Remdesivir 100 mg/ Sodium 230 mls @ 230 mls/hr 12/18/19 18:00 12/20/19 17:54 Chloride IV 12/21/19 18:59 230 mls Q24HR@1800 BERNARDO Administration Polyethylene Glycol 17 gm 12/20/19 09:00 12/21/19 08:43 Polyethylene Glycol 3350 17 Gm Packet PO 17 gm DAILY BERNARDO Administration Sodium Chloride 10 ml 12/15/19 20:30 12/19/19 08:45 Flush - Normal Saline 10 Ml Syringe IVF 10 ml Q12HR PRN Administration Saline Flush Zinc Sulfate 220 mg 12/16/19 09:00 12/21/19 08:42 Zinc Sulfate 220 Mg Cap PO 220 mg DAILY BERNARDO Administration - Exam General Appearance: awake alert Eye: PERRL, anicteric sclera ENT: no oropharyngeal lesions, moist mucosa Neck: supple, no JVD Heart: RRR, no murmur Respiratory: no wheezes, no rales, rhonchi Gastrointestinal: soft, non-tender, non-distended, normal bowel sounds Extremities: no cyanosis, no edema Neurological: cranial nerve grossly intact, no focal deficits Psychiatric: normal affect, A&O x 3 Hosp A/P (1) Pneumonia due to COVID-19 virus Code(s): U07.1 - COVID-19; J12.89 - OTHER VIRAL PNEUMONIA Status: Acute (2) Hypercholesterolemia Code(s): E78.00 - PURE HYPERCHOLESTEROLEMIA, UNSPECIFIED Status: Chronic (3) Hypothyroidism Code(s): E03.9 - HYPOTHYROIDISM, UNSPECIFIED Status: Chronic Qualifiers: Hypothyroidism type: unspecified Qualified Code(s): E03.9 - Hypothyroidism, unspecified - Plan is on dexamethasone, nebs prn, remdesivir, got convalescent plasma 12/17/19 hemostable not on oxygen likely onset is 1 and 1/2 weeks back? dc plan after 4 doses of remdesivir, is getting her 4th dose today to ambulate as tolerated in room
--- NOTE | 2019-12-21 14:05 | PRG ---
DATE OF SERVICE: 12/21/2019 SUBJECTIVE: Feeling better, not coughing, able to take deep breaths. No other issues. OBJECTIVE: VITAL SIGNS: She is afebrile, heart rate 76, breathing 18 times a minute, 96% on room air O2 saturations. LUNGS: Clear. HEART: S1 and S2. Regular rate. ABDOMEN: Soft, not distended or tender. EXTREMITIES: Moves all extremities equally. NEUROLOGIC: Cognitive function is intact. LABORATORY DATA: White cell count 10.6, hemoglobin 12.3, platelets 220, and 82% neutrophils. D-dimer is 0.33. Ferritin is down to 351. CRP is down to 0.87. She is finishing remdesivir and Decadron. ASSESSMENT AND DISCUSSION: 1. Dyslipidemia. 2. [id number] COVID pneumonia. She is at 12 days of illness now. All the markers are going in the right direction and she will do well going forward. Eligible for discharge planning, maybe tomorrow. Job ID: [id number]
[2019-12-21 17:45] VITALS: BP 133/75; TEMP 97.5
[2019-12-21] MEDS: REMDESIVIR (EUA) 100 MG in Sodium Chloride 0.9% 250 ML 230 ML IV SCH (18:03)
--- NOTE | 2019-12-21 18:21 | DIS ---
DATE OF ADMISSION: 12/15/2019 DATE OF DISCHARGE: 12/21/2019 DISCHARGE DISPOSITION: Home. PRIMARY DISCHARGE DIAGNOSES: COVID-19 pneumonia, hypothyroidism, dyslipidemia. PROCEDURES DONE DURING HOSPITALIZATION: The patient received convalescent plasma on 12/17/2019. She received four doses of remdesivir. Chest x-ray done showed bilateral peripheral infiltrates. Blood cultures x2, no growth. Ferritin peaked up to 937 on 12/17/2019. On 12/21/2019, it was 351. CRP was 8.72 on 12/16, on discharge it is 0.87 mg/dL. COVID-19 PCR was positive on 12/15/2019. H and H 12 and 37, platelet count 220, white count of 10. DISCHARGE MEDICATIONS: 1. Dexamethasone 6 mg p.o. daily for another 4 days. 2. Protonix 40 mg p.o. daily for 10 days. 3. Albuterol inhaler q.6 hourly p.r.n. 4. Synthroid 75 mcg p.o. daily. 5. Crestor 10 mg p.o. daily. ALLERGIES: NO KNOWN DRUG ALLERGIES. INPATIENT CONSULT: Dr. Santana for Infectious Disease. DISCHARGE PLAN: The patient to follow up with her primary care physician at [facility] in [address] Santana in 10 days. Likely will have a Zoom meeting with Esther. BRIEF COURSE DURING HOSPITALIZATION: The patient initially came to ER with complaints of cough and shortness of breath. She has had these symptoms for almost 10 days prior to arrival. She had a temperature 101.3 degrees with peripheral infiltrates on chest x-ray. The patient did not require supplemental oxygen. In view of her age of 84 and her presenting symptoms, the patient was given a dose of convalescent plasma. She also received dexamethasone and four doses of remdesivir. The patient has had consultation with Dr. Santana. Ms. Chang has done remarkably well during her stay here. She is ambulating and eating well prior to discharge. Please see a [id number] documentation for the day of discharge on [facility]. She is hemodynamically stable and will be shortly discharged home after her 4th dose of remdesivir today. Job ID: [id number]
== END 2019-12-21 20:00 | disposition home or self-care (01) | DRG 177 ==
LOC: ERS 17:21 → OBSVTOIN 20:00 → 2SW 20:00
PROVIDERS: ADMIT Internal Medicine; ATTEND Internal Medicine
PROC: 8E0ZXY6 Isolation (ICD-10-PCS; principal; 2019-12-15)
PROC: XW033E5 Introduction of Remdesivir Anti-infective into Peripheral Vein, Percutaneous Approach, New Technology Group 5 (ICD-10-PCS; 2019-12-17)
PROC: XW13325 Transfusion of Convalescent Plasma (Nonautologous) into Peripheral Vein, Percutaneous Approach, New Technology Group 5 (ICD-10-PCS; 2019-12-17)
DX: U07.1 COVID-19 (principal); J12.89 Other viral pneumonia; E78.00 Pure hypercholesterolemia, unspecified; E78.5 Hyperlipidemia, unspecified; E03.9 Hypothyroidism, unspecified; Z90.710 Acquired absence of both cervix and uterus; Z87.891 Personal history of nicotine dependence
CPT/HCPCS: 36415; 36430; 71045; 80048; 80053; 80076; 81003; 82553; 82728; 83605; 84145; 84484; 85025; 85379; 86140; 86850; 86900; 86901; 87040; 87045; 87046; 87081; 87324; 87427; 87449; 93005; 96365; 96367; 96372; G0378; J0456; J0696; J1650; J7050; J8540; P9017; U0002

== ENCOUNTER 2024-03-24 12:53 | Outpatient (CLI) | payer MEDICARE | END 2024-03-24 12:54 | disposition home or self-care (01) | LOC: BICCT 12:53 | PROVIDERS: ATTEND Urology | DX: N20.0 Calculus of kidney (principal); K76.9 Liver disease, unspecified; K57.30 Diverticulosis of large intestine without perforation or abscess without bleeding | CPT/HCPCS: 74176 ==